=== PATIENT | female | born 2000 | race African-American/Black ===

== ENCOUNTER 2019-09-17 20:09 | Emergency (ER) | payer BC ==
[2019-09-17 20:42] LABS: Bilirubin Negative (Negative); Blood, Urine Negative (Negative); Clarity Clear (Clear); Glucose, Urine (Dipstick) Negative (Negative); Leukocyte Negative (Negative); Nitrite Negative (Negative); Protein, Urine (Dipstick) Negative (Neg-Trace); Urobilinogen 0.2 mg/dL (Less than 2)
[2019-09-17 20:43] LABS: Pregnancy Test - Urine (BHCG) Negative (Negative); Pregu Control Bar Appear? YES (CONTROL BAR)
[2019-09-17 20:44] LABS: Pregu Control Background? CLEAR/WHITE (CLR/WHITE)
== END 2019-09-17 21:25 | disposition home or self-care (01) ==
LOC: NAV ERS 20:09
DX: R19.7 Diarrhea, unspecified (principal)
CPT/HCPCS: 81003; 81025; 99284

== ENCOUNTER 2020-10-19 23:35 | Emergency (ER) | payer BC ==
[2020-10-20 00:49] LABS: Bilirubin Negative (Negative); Blood, Urine Negative (Negative); Glucose, Urine (Dipstick) Negative (Negative); Ketone, Urine Trace mg/dL (Negative); Leukocyte Negative (Negative); Nitrite Negative (Negative); Protein, Urine (Dipstick) Negative (Neg-Trace); Urobilinogen 0.2 mg/dL (Less than 2); pH, Urine 5.5 (5.0-9.0)
[2020-10-20 00:50] LABS: Clarity Hazy (Clear); Specific Gravity, Urine 1.029 (1.002-1.036)
[2020-10-20 00:51] LABS: Pregnancy Test - Urine (BHCG) Negative (Negative); Pregu Control Background? CLEAR/WHITE (CLR/WHITE); Pregu Control Bar Appear? YES (CONTROL BAR); Specific Gravity 1.029 (1.002-1.036)
== END 2020-10-20 01:07 | disposition home or self-care (01) ==
LOC: NAV ERS 23:35
DX: K59.00 Constipation, unspecified (principal)
CPT/HCPCS: 81003; 81025; 99283

== ENCOUNTER 2021-08-05 23:04 | Emergency (ER) | payer BC | END 2021-08-05 23:45 | disposition home or self-care (01) | LOC: NAV ERS 23:04 | DX: O99.891 Other specified diseases and conditions complicating pregnancy (principal); R11.0 Nausea; R07.0 Pain in throat; Z3A.01 Less than 8 weeks gestation of pregnancy | CPT/HCPCS: 99283 ==

== ENCOUNTER 2022-01-17 22:47 | Emergency (ER) | payer BC | END 2022-01-17 23:05 | disposition home or self-care (01) | LOC: NAV ERS 22:47 | DX: T16.2XXA Foreign body in left ear, initial encounter (principal) | CPT/HCPCS: 69200 ==

== ENCOUNTER 2023-01-31 22:53 | Emergency (ER) | payer OTHER ==
[2023-01-31] MEDS ORDERED: Ibuprofen 200 MG TAB ONE (23:56)
== END 2023-02-01 00:10 | disposition home or self-care (01) ==
LOC: NAV ERS 22:53
DX: S93.402A Sprain of unspecified ligament of left ankle, initial encounter (principal); S93.602A Unspecified sprain of left foot, initial encounter; V00.131A Fall from skateboard, initial encounter; Y93.51 Activity, roller skating (inline) and skateboarding
CPT/HCPCS: 29515

== ENCOUNTER 2023-08-05 17:04 | Emergency (ER) | payer OTHER, SELFPAY ==
[2023-08-05] MEDS ORDERED: Acetaminophen 500 MG TAB ONE (17:44)
== END 2023-08-05 18:35 | disposition home or self-care (01) ==
LOC: NAV ERS 17:04
DX: O99.512 Diseases of the respiratory system complicating pregnancy, second trimester (principal); J01.90 Acute sinusitis, unspecified; Z3A.20 20 weeks gestation of pregnancy; Z20.822 Contact with and (suspected) exposure to COVID-19
CPT/HCPCS: 87081; 87430; 87635; 87804; 99283

== ENCOUNTER 2024-08-10 02:30 | Emergency (ER) | payer BC ==
[2024-08-10 07:37] LABS: %Lymphocytes 25.3 % (21.0-51.0); %Monocytes 9.2 % (0.0-10.0); %Neutrophils 61.2 % (42.0-75.0); Hematocrit 40.8 % (36.0-47.0); Hemoglobin 12.7 g/dL (12.0-16.0); Mean Corpuscular HGB CONC 31.2 g/dL (32.0-36.0); Mean Corpuscular Hemoglobin 26.1 pg (27.0-31.0); Mean Corpuscular Volume 83.7 fl (78.0-98.0); Mean Platelet Volume 6.4 fL (7.4-10.4); Platelet Count 284 10x3/uL (130-400); RBC Distribution Width 14.1 % (11.5-14.5); Red Blood Cell (RBC) Count 4.87 mill/uL (4.20-5.40); White Blood Cell (WBC) Count 9.1 10x3/uL (4.8-10.8)
[2024-08-10 07:38] LABS: #Basophils 0.1 thou/uL (0.0-0.2); #Eosinophils 0.3 thou/uL (0.0-0.7); #Lymphocytes 2.3 thou/uL (1.20-3.40); #Monocytes 0.8 thou/uL (0.11-0.59); #Neutrophils 5.5 thou/uL (1.40-6.50); %Basophils 1.3 % (0.0-1.0)
== END 2024-08-10 04:12 | disposition home or self-care (01) ==
LOC: NAV ERS 02:30
DX: O20.0 Threatened abortion (principal); Z3A.01 Less than 8 weeks gestation of pregnancy
CPT/HCPCS: 84702; 86900; 86901; 99284